=== PATIENT | male | born 1985 | race Caucasian/White ===

== ENCOUNTER 2019-07-19 04:02 | Emergency (ER) | payer SELFPAY ==
[~2019-07-19] VITALS: Ht 182.9 cm; Wt 90.7 kg
[2019-07-19 04:06] VITALS: BP 139/85
--- NOTE | 2019-07-19 04:12 | PHYS DOC ---
Past Medical History Past Medical History: No Pertinent History Past Surgical History: Other Additional Past Surgical Histo: Hip surgery Smoking: Cigarettes, Less than 1pk/day Alcohol Use: None Drug Use: Marijuana Adult General Chief Complaint Chief Complaint: EARACHE/EAR PAIN HPI HPI Mr. Luke is a 33yo M w/ no significant PMH who presents w/ 4 days of constant sharp left ear pain that has progressively become worse. "Touch it, its a 10. Sitting around, its a 5.5." Pulling the left ear worsens the pain and radiates into left side of jaw. Denies fever/chills. Denies trauma. Review of Systems Review of Systems Constitutional: Denies fever or chills Eyes: Denies redness or eye pain HENT: Reports left ear swelling and pain. Denies nasal congestion, sore throat, or tinnitus. Respiratory: Denies cough or shortness of breath Cardiovascular: Denies chest pain or palpitations GI: Denies abdominal pain, nausea, vomiting, diarrhea, or constipation : Denies dysuria or hematuria Musculoskeletal: Denies back pain or joint pain Integument: Denies rash; reports swelling Neurologic: Denies headache, focal weakness or sensory changes Complete systems were reviewed and found to be within normal limits, except as documented in this note. Current Medications Current Medications Current Medications Medications (Trade) Dose Ordered Sig/Sarah Start Time Stop Time Status Last Admin Dose Admin Clindamycin HCl (Cleocin) 300 mg 1X ONCE 07/19/19 05:00 07/19/19 05:01 DC 07/19/19 04:55 300 MG Ibuprofen (Motrin) 600 mg 1X ONCE 07/19/19 05:00 07/19/19 05:01 DC 07/19/19 04:56 600 MG Neomycin/ Polymyxin/ Bacitracin (Triple Antibiotic Ointment) 1 pkt 1X ONCE 07/19/19 05:00 07/19/19 05:01 DC 07/19/19 04:55 1 PKT Allergies Allergies Allergies Coded Allergies Type Severity Reaction Last Updated Verified Penicillins Allergy Intermediate 10/05/15 Yes Physical Exam Physical Exam Constitutional: Well developed, well nourished, no acute distress, non-toxic appearance HENT: Normocephalic, atraumatic, oropharynx moist, 2cm fluctuance noted to floor of external left ear canal consistent for abscess Eyes: Conjunctiva normal, no discharge Neck: Normal range of motion, no tenderness, supple, no cervical lymphadenopathy Skin: Warm, dry, no erythema, no rash Extremities: No tenderness, ROM intact, no edema Neurologic: Alert and oriented X 3, no focal deficits noted Psychologic: Affect normal, judgement normal Current Patient Data Vital Signs Vital Signs Date Time Temp Pulse Resp B/P (MAP) Pulse Ox O2 Delivery O2 Flow Rate FiO2 07/19/19 04:06 98.4 90 20 139/85 (103) 98 Room Air 98.4 EKG EKG [] Radiology/Procedures Radiology/Procedures [] Course & Med Decision Making Course & Med Decision Making Mr. Luke presented with left ear pain secondary to abscess formation. Incision and drainage of abscess with copious irrigation. Topical Neosporin applied. Clindamycin prescription provided. Patient stable for discharge with outpatient follow-up with PCP. Discussed findings and plan with patient, who acknowledges understanding and agreement. Dragon Disclaimer Dragon Disclaimer This electronic medical record was generated, in whole or in part, using a voice recognition dictation system. Incision and Drainage Incision and Drainage : Site: Left external ear canal Blade Size: 11 Progress Verbal consent obtained. Time out performed. Hand hygiene utilized. Wound cleaned with ChloraPrep. Small incision performed with 11 blade scalpel with significant purulent drainage. Copious irrigation performed. Patient tolerated procedure well and without difficulty. Empiric antibiotic ointment applied. Departure Departure Impression: Primary Impression: Abscess of left ear canal Disposition: HOME, SELF-CARE Condition: STABLE Referrals: NO PCP (PCP) Patient Instructions: Abscess, Care After, Abscess, [id number] Additional Instructions: Do not soak your wound. You may shower. Clean wound daily with soap and water. Use over the counter antibiotic ointment twice daily to wound. Use over the counter Tylenol and Ibuprofen for pain as needed. Take antibiotic as directed until gone. Scripts Clindamycin Hcl (CLINDAMYCIN HCL) 300 Mg Capsule 1 CAP PO TID for Infection for 7 Days, #21 CAP Prov: NATIVIDAD MAYEN DO 07/19/19 NATIVIDAD MAYEN DO Jul 19, 2019 04:12
[2019-07-19] MEDS ORDERED: CLIN300C8 PO (04:45)
[2019-07-19] MEDS ORDERED: NEOMY/BACITR/POLYMYXIN OINT PACKET. TP ONE (05:00)
[2019-07-19] MEDS ORDERED: IBUPROFEN 200 MG TABLET. PO ONE (05:00)
[2019-07-19] MEDS ORDERED: CLINDAMYCIN HCL 150 MG CAPSULE. PO ONE (05:00)
== END 2019-07-19 05:01 | disposition home or self-care (01) ==
LOC: ER 04:02
DX: H66.42 Suppurative otitis media, unspecified, left ear (principal); F17.210 Nicotine dependence, cigarettes, uncomplicated; Z88.0 Allergy status to penicillin
CPT/HCPCS: 69020; 99284